=== PATIENT | female | born 1995 | race Caucasian/White ===

== ENCOUNTER 2020-10-21 15:59 | Outpatient (CLI) | payer BC, SELFPAY ==
--- NOTE | ~2020-10-21 | US_ITS ---
US renal BI DATE: 10/21/2020 16:43 INDICATION: Diminished renal function TECHNIQUE: Real-time imaging of kidneys and urinary bladder COMPARISON: None FINDINGS: The kidneys each measure approximately 9.4 cm length. No renal mass lesion or hydronephrosi s. The urinary bladder is unremarkable. IMPRESSION: No significant abnormality Reviewed, dictated and finalized at [facility]. Reviewed, dictated and finalized at [facility]. IMPRESSION: No significant abnormality
== END 2020-10-21 16:00 | disposition home or self-care (01) ==
DX: N28.9 Disorder of kidney and ureter, unspecified (principal)
CPT/HCPCS: 76775

== ENCOUNTER 2020-12-14 16:08 | Outpatient (CLI) | payer BC, SELFPAY ==
--- NOTE | ~2020-12-14 | XR_ITS ---
EXAMINATION: XR hip BI 2V w AP pelvis DATE: 12/14/2020 16:58 INDICATION: Hip pain. TECHNIQUE: An anteroposterior view of the pelvis and 2 views of each hip were obtained. COMPARISON: None. FINDINGS: Bone alignment is normal. No fracture. Joint spaces are well maintained. IMPRESSION: 1. Normal pelvis and hips. Reviewed, dictated and finalized at [facility]. IMPRESSION: 1. Normal pelvis and hips.
== END 2020-12-14 16:09 | disposition home or self-care (01) ==
LOC: ANHIMG 16:21
PROVIDERS: Visit Provider Internal Medicine Cardiovascular Disease
DX: M25.559 Pain in unspecified hip (principal); R53.83 Other fatigue; R00.0 Tachycardia, unspecified; R55 Syncope and collapse; R06.02 Shortness of breath; R42 Dizziness and giddiness; N28.9 Disorder of kidney and ureter, unspecified
CPT/HCPCS: 73521

== ENCOUNTER 2021-03-15 12:29 | Outpatient (CLI) | payer BC, SELFPAY ==
[2021-03-20 07:21] LABS: Calculated Total (E+NE) 27 mcg/24 h (26-121); Dopamine, 24hr Urine 166 mcg/24 h (52-480); Norepinephrine, 24hr Urine 27 mcg/24 h (15-100); Vanillymandelic Acid 24 Hr Ur 4.8 mg/24 h (<=6.0)
[2021-03-21 07:42] LABS: Metanephrine, Total Urine 249; Metanephrine, Urine 64; Normetanephrine, Urine 185
== END 2021-03-15 12:30 | disposition home or self-care (01) ==
LOC: ANHLAB 12:31
PROVIDERS: Visit Provider Internal Medicine Cardiovascular Disease
DX: I49.8 Other specified cardiac arrhythmias (principal)
CPT/HCPCS: 82384; 83835; 84585